=== PATIENT | female | born 1980 | race Caucasian/White ===

== ENCOUNTER 2023-11-27 14:34 | Outpatient (RCR) | payer OTHER | END 2023-11-29 | disposition home or self-care (01) | LOC: WSOH | DX: S30.0XXD Contusion of lower back and pelvis, subsequent encounter (principal); I10 Essential (primary) hypertension; Y99.0 Civilian activity done for income or pay ==

== ENCOUNTER 2023-12-14 11:30 | Outpatient (RCR) | payer OTHER | END 2023-12-28 | LOC: WSOH | DX: S30.0XXD Contusion of lower back and pelvis, subsequent encounter (principal); I10 Essential (primary) hypertension; Y99.0 Civilian activity done for income or pay ==

== ENCOUNTER 2024-01-01 14:02 | Outpatient (RCR) | payer OTHER | END 2024-01-28 | LOC: WSOH | DX: S30.0XXD Contusion of lower back and pelvis, subsequent encounter (principal); I10 Essential (primary) hypertension; Y99.0 Civilian activity done for income or pay ==

== ENCOUNTER → 2024-07-11 | Outpatient (CLI) | payer OTHER | LOC: COL.RAD 07:21 | DX: S30.0XXA Contusion of lower back and pelvis, initial encounter (principal) ==